=== PATIENT | male | born 1995 | race African-American/Black ===

== ENCOUNTER → 2018-07-23 | Outpatient (CLI) | payer OTHER ==
[2018-07-25 08:57] LABS: MUMPS VIRUS IgG ANTIBODY <9.0 AU/mL (Immune >10.9)
[2018-07-25 08:57] LABS: RUBEOLA IgG ANTIBODY 29.2 AU/mL (Immune >29.9)
[2018-07-25 11:29] LABS: RUBELLA IgG QUALITATIVE SUSCEPTIBLE (IMMUNE)
== END ==
LOC: M WUC 13:46
DX: Z02.1 Encounter for pre-employment examination (principal)
CPT/HCPCS: 86762